=== PATIENT | female | born 1995 | race African-American/Black ===

== ENCOUNTER 2019-07-16 08:12 | Emergency (ER) | payer MEDICAID ==
[~2019-07-16] VITALS: Ht 167.6 cm; Wt 58.0 kg
[2019-07-16] MEDS ORDERED: ACETAMINOPHEN 325MG TABLET PO PRN (11:30)
[2019-07-16 11:36] LABS: BASOPHILS % 0.4 % (0.0-2.0); EOSINOPHILS % 0.6 % (0.0-5.0); HEMATOCRIT. 34.6 % (36.0-48.0); HEMOGLOBIN. 11.7 g/dL (12.0-16.0); LYMPHOCYTES % 16.8 % (20.0-50.0); MEAN CORPUSCULAR HEMOGLOBIN 30.4 pg (28.0-32.0); MEAN PLATELET VOLUME 9.3 fl (7.4-10.4); MONOCYTES % 5.7 % (2.0-8.0); NEUTROPHILS % 76.5 % (40.0-76.0); PLATELET 228 x1000/uL (130-400); RED BLOOD CELL COUNT 3.85 mill/uL (4.2-5.4); RED CELL DISTRIBUTION WIDTH 13.5 % (11.6-14.6)
[2019-07-16 12:01] LABS: B-HCG QUANTITATIVE 8391 mIU/mL (<3)
[2019-07-16 12:13] LABS: CHLORIDE 106 mEq/L (98-107)
[2019-07-16 13:13] VITALS: BP 100/64
== END 2019-07-16 13:40 | disposition home or self-care (01) ==
LOC: ER 08:26
DX: O20.0 Threatened abortion (principal); Z3A.10 10 weeks gestation of pregnancy
CPT/HCPCS: 36415; 76801; 80053; 81025; 84702; 85025; 86850; 86900; 99284